=== PATIENT | female | born 1985 ===

== ENCOUNTER 2018-01-06 08:56 | Emergency (ER) | payer MEDICAID ==
[2018-01-06 08:57] VITALS: BMI 31.1
[2018-01-06] MEDS ORDERED: Sodium Chloride 0.9% 1,000 ML IV STA (09:15)
--- NOTE | 2018-01-06 10:04 | ED PDOC ---
HPI: Psych/Substance Abuse Time Seen by Provider: 01/06/18 09:08 Chief Complaint (Nursing): Abdominal Pain Chief Complaint (Provider): tremur History Per: Patient History/Exam Limitations: no limitations Onset/Duration Of Symptoms: Days (x2) Current Symptoms Are (Timing): Still Present Modifying Factor(s): Alcohol Additional Complaint(s): 32 year old female with medical history of renal disease and bipolar disorder, presents to the emergency department with a complaint of nausea and tremulous activity ongoing for 2 days. Patient admits to drinking alcohol daily with last drink last night and may be experiencing withdrawal symptoms. She denied any suicidal or homicidal ideation. Patient is on a Methadone maintenance treatment. PMD: none provided Past Medical History Reviewed: Historical Data, Nursing Documentation, Vital Signs Vital Signs: Last Vital Signs Temp 97 F L 01/06/18 09:00 Pulse 85 01/06/18 09:00 Resp 18 01/06/18 09:00 BP 99/66 L 01/06/18 09:00 Pulse Ox 97 01/06/18 09:00 - Medical History PMH: Bipolar Disorder, Depression, Kidney Stones, Personality Disorder, Post Traumatic Stress Disorder, Chronic Kidney Disease Denies: Diabetes, Hepatitis, HIV, HTN, Seizures, Sexually Transmitted Disease - Surgical History Surgical History: No Surg Hx - Family History Family History: States: Unknown Family Hx - Social History Current smoker - smoking cessation education provided: Yes Alcohol: > 2 Drinks/Day Drugs: Cannabis, Other (methadone) - Immunization History Hx Tetanus Toxoid Vaccination: No Hx Influenza Vaccination: No Hx Pneumococcal Vaccination: No - Home Medications Home Medications: Ambulatory Orders Medication Instructions Recorded Acetaminophen [Tylenol 325mg tab] 325 mg PO DAILY 12/26/17 Aluminum Hydroxide/Magnesium H 30 ml PO DAILY 12/26/17 [Maalox 30 ml] Amoxicillin/Clavulanate [Augmentin 1 tab PO Q12 12/26/17 875 MG-125 MG Tab] Benzocaine [Anbesol] 0 ml MM DAILY 12/26/17 Folic Acid 1 mg PO DAILY 12/26/17 Ibuprofen [Motrin Tab] 400 mg PO DAILY 12/26/17 Lidocaine 2% Viscous 0 ml MM DAILY 12/26/17 Magnesium Hydroxide [Milk Of 30 ml PO DAILY 12/26/17 Magnesia] Multivitamin Therapeutic Tab 1 tab PO 0800 12/26/17 [Thera Tab] Mupirocin [Centany] 2 gm TP DAILY 12/26/17 Thiamine HCl 100 mg PO DAILY 12/26/17 Fluoxetine HCl [Prozac] 40 mg PO DAILY #14 capsule 12/29/17 Gabapentin [Neurontin] 600 mg PO TID #45 tab 12/29/17 Lorazepam [Ativan] 1 mg PO TID #6 tablet 12/29/17 Methadone 200 mg PO DAILY tab 12/29/17 Methylprednisolone [Medrol Dose 4 mg PO DAILY #21 mg 12/29/17 Pack (21 tabs)] Mirtazapine [Remeron Soltab] 45 mg PO HS #14 odt 12/29/17 Moxifloxacin [Avelox] 400 mg PO DAILY #14 tab 12/29/17 Nicotine 14 mg/24 hr [Nicoderm CQ] 1 each TD DAILY #14 patch 12/29/17 Quetiapine Fumarate [Seroquel] 300 mg PO AMHS #30 tablet 12/29/17 chlordiazePOXIDE [Chlordiazepoxide 25 mg PO Q8 #9 cap 01/06/18 HCl] - Allergies Allergies/Adverse Reactions: Allergies Allergy/AdvReac Type Severity Reaction Status Date / Time pentazocine AdvReac FEVER Verified 01/06/18 09:00 Review of Systems ROS Statement: Except As Marked, All Systems Reviewed And Found Negative Gastrointestinal: Positive for: Nausea Neurological: Positive for: Other (tremulous) Physical Exam - Reviewed Nursing Documentation Reviewed: Yes Vital Signs Reviewed: Yes - Physical Exam Appears: Positive for: Uncomfortable Head Exam: Positive for: ATRAUMATIC, NORMAL INSPECTION, NORMOCEPHALIC Skin: Positive for: Normal Color Eye Exam: Positive for: EOMI, Normal appearance, PERRL ENT: Positive for: Normal ENT Inspection Neck: Positive for: Normal, Supple Cardiovascular/Chest: Positive for: Regular Rate, Rhythm, Chest Non Tender Respiratory: Positive for: Normal Breath Sounds. Negative for: Decreased Breath Sounds, Wheezing, Respiratory Distress Gastrointestinal/Abdominal: Positive for: Normal Exam, Soft. Negative for: Tenderness Extremity: Positive for: Normal ROM (upper/lower) Neurologic/Psych: Positive for: Alert (x3), Oriented, Other (mild tremur to upper extremities). Negative for: Motor/Sensory Deficits - Laboratory Results Result Diagrams: 01/06/18 09:35 01/06/18 09:35 - ECG O2 Sat by Pulse Oximetry: 97 (RA) Pulse Ox Interpretation: Normal Medical Decision Making Medical Decision Making: Initial Impression: Alcohol withdrawal symptoms Initial Plan: * EKG * Alcohol serum * CMP * Drug screen, urine * Urine * Urine dipstick * CBC * Librium 50mg PO * NS 1,000ml IV per 150mls/hr Scribe Attestation: Documented by Camille Jon, acting as a scribe for Vasile Mon MD. Provider Scribe Attestation: All medical record entries made by the Scribe were at my direction and personally dictated by me. I have reviewed the chart and agree that the record accurately reflects my personal performance of the history, physical exam, medical decision making, and the department course for this patient. I have also personally directed, reviewed, and agree with the discharge instructions and disposition. Disposition - Clinical Impression Clinical Impression: Polysubstance abuse - Patient ED Disposition Is Patient to be Admitted: No Counseled Patient/Family Regarding: Studies Performed, Diagnosis, Need For Followup, Rx Given - Disposition Referrals: [facility] [Outside] Disposition: Routine/Home Disposition Time: 11:45 Condition: FAIR Prescriptions: chlordiazePOXIDE [Chlordiazepoxide HCl] 25 mg PO Q8 #9 cap Instructions: Polysubstance Abuse Forms: [employer] (Iranian)
[2018-01-06 10:12] LABS: BASO # 0.1 K/uL (0.0-0.2); BASO % 0.9 % (0.0-2.0); EOS # 0.3 K/uL (0.0-0.7); EOS % 2.8 % (0.0-4.0); HEMOGLOBIN 12.7 g/dL (12.0-16.0); LYMPH # 3.6 K/uL (1.0-4.3); LYMPH % 37.2 % (20.0-40.0); MEAN CELL VOLUME 93.5 fl (81.0-99.0); MEAN CORPUSCULAR HGB CONC 34.3 g/dL (33.0-37.0); MEAN PLATELET VOLUME 7.4 fl (7.2-11.7); MONO # 0.5 K/uL (0.0-0.8); MONO % 4.9 % (0.0-10.0); NEUT # 5.3 K/uL (1.8-7.0); NEUT % 54.2 % (50.0-75.0); NRBC % 0.1 % (0.0-0.0); RBC 3.97 Mil/uL (3.80-5.20); WHITE BLOOD COUNT 9.7 K/uL (4.8-10.8)
[2018-01-06 10:24] LABS: ALB/GLOB RATIO 1.1 (1.0-2.1); ALBUMIN 3.7 g/dL (3.5-5.0); ALT/SGPT 33 U/L (9-52); AST/SGOT 22 U/L (14-36); BLOOD UREA NITROGEN 10 mg/dl (7-17); CALCIUM 8.8 mg/dL (8.4-10.2); GFR AFRICAN-AMERICAN > 60; GFR NON-AFRICAN AMERICAN > 60
[2018-01-06 10:31] LABS: OPIATES, UR NEGATIVE (NEGATIVE); PHENCYCLIDINE, UR NEGATIVE (NEGATIVE)
[2018-01-06 10:34] LABS: BARBITURATES, UR NEGATIVE (NEGATIVE); BENZODIAZEPINES, UR POSITIVE (NEGATIVE)
[2018-01-06 12:07] VITALS: BP 110/68; PULSE 87; RESP 19; TEMP 98.6; O2SAT 98
--- NOTE | 2018-01-07 12:33 | CARD ---
APPROVED REPORT EKG Measurement Heart [id number] <Conclusion> Normal sinus rhythm Nonspecific T wave abnormality Abnormal ECG
== END 2018-01-06 12:13 | disposition home or self-care (01) ==
LOC: H.ER 08:56
DX: F10.239 Alcohol dependence with withdrawal, unspecified (principal); F31.9 Bipolar disorder, unspecified; F43.10 Post-traumatic stress disorder, unspecified
CPT/HCPCS: 80053; 80320; 80324; 80345; 80346; 80349; 80353; 80358; 80361; 81025; 83992; 85025; 93005; 99285; J7040